=== PATIENT | female | born 1970 | race Caucasian/White ===

== ENCOUNTER 2017-08-09 21:27 | Emergency (ER) | payer MEDICAID ==
[~2017-08-09] VITALS: Ht 170.2 cm; Wt 96.2 kg
[~2017-08-09 21:27] MED LIST: BACTRIM DS TAB1 EACH PO; DIAMOX SEQUELS500 MG; IBUPROFEN200 M2 PO; INDERAL40 MG PO; LEXAPRO 10 MG T10 M1; MEDROL4 MG; NORCO 5-325 TA1 EACH PO; PERCOCET 5-3251 EACH PO; SEROQUEL XR 30300 M1 PO; TRAZODONE HCL50 MG; TRIAMCINOLONE A80 G2; XANAX 0.5 MG0.5 M1 PO
[2017-08-09] MEDS ORDERED: XANAX 0.5 MG0.5 MG PO (21:39)
[2017-08-09] MEDS ORDERED: LOPRESSOR25 PO (21:39)
[2017-08-09] MEDS ORDERED: TOPAMAX 25 MG T25 M1 PO (21:39)
[2017-08-09] MEDS ORDERED: SPRINTEC1 EACH PO (21:40)
[2017-08-09 22:31] LABS: ABSOLUTE BASOPHILS 0.1 thou/uL (0.0-0.2); ABSOLUTE EOSINOPHILS 0.3 thou/uL (0.0-0.7); ABSOLUTE LYMPHOCYTES 2.7 thou/uL (0.8-5.3); ABSOLUTE MONOCYTES 0.4 thou/uL (0.0-1.2); ABSOLUTE NEUTROPHILS 2.7 thou/uL (1.6-8.1); BASOPHILS 0.9 %; EOSINOPHILS 5.4 %; HEMATOCRIT 39.4 % (37.0-47.0); HEMOGLOBIN 13.3 gm/dL (12.0-15.0); MCH 30.2 pg (26.0-34.0); MCHC 33.8 g/dL (28.0-37.0); MCV 89.4 fL (80.0-100.0); MPV 8.6 fl. (7.2-11.1); NUCLEATED RBCS 0 /100WBC; PLATELET COUNT* 166 thou/uL (150-400); POLYS 43.7 %; RBC 4.41 mil/uL (4.20-5.00); RDW-CV 13.9 % (10.5-14.5); WBC 6.3 thou/uL (4.0-11.0)
[2017-08-09 22:38] LABS: ANION GAP 7 mmol/L (7-16); BUN 14 mg/dL (7-18); CALCIUM 8.9 mg/dL (8.5-10.1); CHLORIDE 106 mmol/L (98-107); CO2 27 mmol/L (21-32); CREATININE 0.9 mg/dL (0.6-1.3); GLUCOSE 97 mg/dL (70-99); POTASSIUM 4.1 mmol/L (3.5-5.1); SODIUM 140 mmol/L (136-145)
[2017-08-09 22:45] LABS: ALKALINE PHOSPHATASE 83 U/L (46-116); SGOT 12 U/L (15-37); SGPT 15 U/L (30-65); TOTAL PROTEIN 7.1 g/dL (6.4-8.2)
[2017-08-09 22:58] LABS: TOTAL BILIRUBIN 0.1 mg/dL (<0.1-1.0)
[2017-08-09 23:18] LABS: TROPONIN-I LEVEL <0.06 ng/mL (<0.06)
[2017-08-09 23:37] LABS: URINE BILIRUBIN NEGATIVE (Negative); URINE BLOOD TRACE (Negative); URINE CLARITY CLEAR; URINE COLOR YELLOW; URINE GLUCOSE-RANDOM NEGATIVE (Negative); URINE KETONES NEGATIVE (Negative); URINE LEUKOCYTES-REFLEX 1+ (Negative); URINE NITRITE-REFLEX POSITIVE (Negative); URINE PROTEIN NEGATIVE (Negative); URINE SPECIFIC GRAVITY 1.025 (1.005-1.030); URINE UROBILINOGEN 0.2 E.U./dl (0.2-1.0)
[2017-08-09 23:46] LABS: AMP/METHAMP Negative (Negative); BARBITURATES Negative (Negative); BENZODIAZEPINES Negative (Negative); COCAINE Negative (Negative); METHADONE Negative (Negative); OPIATES Negative (Negative); PCP Negative (Negative); THC Negative (Negative)
[2017-08-09] MEDS ORDERED: XANAX 0.5 MG0.5 M1 PO (23:48)
[2017-08-09] MEDS ORDERED: BACTRIM DS TAB1 EACH PO (23:49)
[2017-08-09 23:58] LABS: BACTERIA-REFLEX >30 Many /HPF (None Seen); CASTS None Seen /LPF (None Seen); CRYSTALS None Seen /LPF (None Seen); MUCUS 4-6 Moderate strn/LPF (None Seen); SQUAMOUS 0-3 Few /LPF (0-3); URINE RBC 3-10 Few /HPF (0-2)
[2017-08-10 00:29] VITALS: BP 145/81
--- NOTE | 2017-08-10 15:59 | EKG ---
[place] [address] ELECTROCARDIOGRAM REPORT Name: EDNA CARRENO Room: 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
== END 2017-08-10 00:30 | disposition home or self-care (01) ==
LOC: M.ERS 21:27
PROVIDERS: Personal Emergency Response Attendant
DX: F41.9 Anxiety disorder, unspecified (principal); N39.0 Urinary tract infection, site not specified; R07.89 Other chest pain; F41.0 Panic disorder [episodic paroxysmal anxiety]; F43.10 Post-traumatic stress disorder, unspecified; Z88.1 Allergy status to other antibiotic agents; Z88.8 Allergy status to other drugs, medicaments and biological substances

== ENCOUNTER → 2018-01-19 | Emergency (ER) | payer OTHER, MEDICAID ==
[~2018-01-19] VITALS: Ht 162.6 cm; Wt 96.2 kg
[~2018-01-19] MED LIST changes: +LOPRESSOR25 PO; +SPRINTEC1 EACH PO; +TOPAMAX 25 MG T25 M1 PO; +XANAX 0.5 MG0.5 MG PO
[2018-01-19 18:32] VITALS: BP 155/89
== END ==
LOC: M.ERS 17:36
DX: S60.512A Abrasion of left hand, initial encounter (principal); V89.0XXA Person injured in unspecified motor-vehicle accident, nontraffic, initial encounter; Y92.89 Other specified places as the place of occurrence of the external cause; Y99.8 Other external cause status

== ENCOUNTER 2018-12-16 22:22 | Emergency (ER) | payer OTHER, MEDICAID ==
[~2018-12-16] VITALS: Ht 162.6 cm; Wt 96.2 kg
[2018-12-16] MEDS ORDERED: CLONIDINE0.1 PO (22:40)
[2018-12-17 00:56] VITALS: BP 179/99
== END 2018-12-17 00:56 | disposition home or self-care (01) ==
LOC: M.ERS 22:22
DX: S69.82XA Other specified injuries of left wrist, hand and finger(s), initial encounter (principal); F41.0 Panic disorder [episodic paroxysmal anxiety]; Z88.1 Allergy status to other antibiotic agents; Z88.5 Allergy status to narcotic agent; X50.0XXA Overexertion from strenuous movement or load, initial encounter; Y92.89 Other specified places as the place of occurrence of the external cause; Y93.89 Activity, other specified; Y99.8 Other external cause status

== ENCOUNTER 2019-02-11 18:06 | Emergency (ER) | payer MEDICARE, MEDICAID ==
[~2019-02-11] VITALS: Ht 162.6 cm; Wt 99.8 kg
[~2019-02-11 18:06] MED LIST changes: +CLONIDINE0.1 PO
[2019-02-11 18:28] VITALS: BP 152/97
[2019-02-11] MEDS ORDERED: VOLTAREN100 GM TOP (19:10)
== END 2019-02-11 19:31 | disposition home or self-care (01) ==
LOC: M.ERS 18:06
DX: F41.0 Panic disorder [episodic paroxysmal anxiety] (principal); M79.644 Pain in right finger(s); Z88.1 Allergy status to other antibiotic agents; Z91.041 Radiographic dye allergy status

== ENCOUNTER 2019-12-04 19:54 | Emergency (ER) | payer MEDICARE, MEDICAID ==
[~2019-12-04] VITALS: Ht 162.6 cm; Wt 102.1 kg
[~2019-12-04 19:54] MED LIST changes: +VOLTAREN100 GM TOP
[2019-12-04] MEDS ORDERED: HYDROCHLOROTHIA25 M1 PO (20:15)
[2019-12-04 21:17] LABS: ABSOLUTE BASOPHILS 0.1 thou/uL (0.0-0.2); ABSOLUTE EOSINOPHILS 0.3 thou/uL (0.0-0.7); ABSOLUTE LYMPHOCYTES 1.8 thou/uL (0.8-5.3); ABSOLUTE MONOCYTES 0.6 thou/uL (0.0-1.2); ABSOLUTE NEUTROPHILS 3.3 thou/uL (1.6-8.1); BASOPHILS 0.9 %; EOSINOPHILS 5.1 %; HEMATOCRIT 34.4 % (37.0-47.0); HEMOGLOBIN 11.3 gm/dL (12.0-15.0); LYMPHOCYTES 30.2 %; MCH 23.6 pg (26.0-34.0); MCHC 32.9 g/dL (28.0-37.0); MCV 71.7 fL (80.0-100.0); MONOCYTES 9.2 %; MPV 8.8 fl. (7.2-11.1); NUCLEATED RBCS 0 /100WBC; PLATELET COUNT* 197 thou/uL (150-400); POLYS 54.6 %; RDW-CV 23.5 % (10.5-14.5); WBC 6.1 thou/uL (4.0-11.0)
[2019-12-04 21:29] LABS: APTT 22.2 Seconds (25.0-31.3); INR 0.9; PROTIME 9.8 Seconds (9.20-11.50)
[2019-12-04 21:32] LABS: CALCIUM 8.5 mg/dL (8.5-10.1); CREATININE 0.9 mg/dL (0.6-1.3); POTASSIUM 3.5 mmol/L (3.5-5.1)
[2019-12-04 21:36] LABS: ALBUMIN 3.3 g/dL (3.4-5.0); TOTAL BILIRUBIN 0.2 mg/dL (<0.1-1.0); TOTAL PROTEIN 7.7 g/dL (6.4-8.2)
[2019-12-04 21:51] LABS: ANISOCYTOSIS 2+
[2019-12-04 21:52] LABS: HYPOCHROMASIA 1+; MICROCYTES 2+; PLATELET ESTIMATE ADEQUATE
[2019-12-04] MEDS ORDERED: OMEPRAZOLE40 MG PO (22:08)
[2019-12-04] MEDS ORDERED: CARAFATE 1 GM TA1 GM PO (22:08)
[2019-12-04 22:27] VITALS: BP 168/97
--- NOTE | 2019-12-06 14:35 | EKG ---
[place] [address] ELECTROCARDIOGRAM REPORT Name: EDNA CARRENO Room: [facility]#: [id number] Admission: 12/04/19 Attend Phys: Discharge: 12/04/19 Date of : 74 Date of Service: 12/04/192007 Report #: [id number] THIS REPORT FOR: //name// [facility] ED Test Date: 2019-12-04 Test Time: 20:08:19 Pat Name: EDNA CARRENO Department: Room: Gender: Route Returner: : 1970 Requested By: Yarely Brown Order Number: [id number] MD: Dharmesh Del Angel Measurements Intervals [place] Rate: 92 P: 9 MN: 177 QRS: 11 QRSD: 99 T: -21 QT: 377 QTc: 467 Interpretive Statements Sinus rhythm Borderline repolarization abnormality Compared to ECG 08/09/2017 21:33:24 No significant changes Electronically Signed On 12-06-2019 14:35:44 CDT by Dharmesh Del Angel [email or web address] <ELECTRONICALLY SIGNED> By: Dharmesh Del Angel MD, [facility] 12/06/19 1435 07 07 Dharmesh Del Angel MD, [facility] /EPI
== END 2019-12-04 22:27 | disposition home or self-care (01) ==
LOC: M.ERS 19:54
PROVIDERS: Personal Emergency Response Attendant
DX: K21.9 Gastro-esophageal reflux disease without esophagitis (principal); K22.4 Dyskinesia of esophagus; F41.9 Anxiety disorder, unspecified; Z91.041 Radiographic dye allergy status; Z88.1 Allergy status to other antibiotic agents; Z88.8 Allergy status to other drugs, medicaments and biological substances